=== PATIENT | male | born 1985 | race Caucasian/White ===

== ENCOUNTER 2023-05-29 12:50 | Outpatient (CLI) | payer OTHER, SELFPAY ==
--- NOTE | 2023-05-29 13:00 | CRLHL7_ITS ---
For Patients: As a result of the Century Cures Act, medical imaging exams and procedure reports are released immediately into your electronic medical record. You may view this report before your referring provider. If you have questions, please contact your health care provider. HISTORY: Right shoulder pain after injury. TECHNIQUE: Routine shoulder protocol. FINDINGS: Rotator cuff: There is moderate subscapularis and supraspinatus tendinosis. There is likely element of low grade thinning of both tendons involving less than 50 percent of each tendon thickness. The other cuff components are intact and unremarkable. Acromioclavicular joint region: Mild degenerative change is present. There is a flat, type 1 acromial undersurface. Biceps labral complex: No labral tearing is identified. The biceps anchor and proximal long biceps tendon are intact and in normal position. Glenohumeral joint: Articular cartilage surfaces are smooth and unremarkable. No joint effusion or loose body is noted. Bones and soft tissues: No findings for fracture or tumor. No muscular abnormality is noted. IMPRESSION: Moderate subscapularis and supraspinatus tendinosis with evidence for likely low-grade thinning of both tendons involving less than 50 percent of each tendon thickness. Dictated by Shawn Vargas MD @ 05/30/2023 11:41:17 AM (Electronically Signed)
== END 2023-05-29 12:51 | disposition home or self-care (01) ==
PROVIDERS: PCP Physician Assistant Medical; Visit Provider Physician Assistant Medical
DX: M25.511 Pain in right shoulder (principal); M75.101 Unspecified rotator cuff tear or rupture of right shoulder, not specified as traumatic; S49.91XA Unspecified injury of right shoulder and upper arm, initial encounter
CPT/HCPCS: 73221

== ENCOUNTER 2023-10-26 08:45 | Outpatient (RCR) | payer OTHER, SELFPAY | END 2023-12-16 17:37 | disposition home or self-care (01) | PROVIDERS: PCP Physician Assistant Medical; Visit Provider Physician Assistant Medical | DX: S49.91XA Unspecified injury of right shoulder and upper arm, initial encounter (principal); Z51.89 Encounter for other specified aftercare | CPT/HCPCS: 97110; 97140; 97162; 97535 ==